=== PATIENT | female | born 1985 | race African-American/Black ===

== ENCOUNTER 2017-01-31 17:45 | Emergency (ER) | payer MEDICAID ==
[~2017-01-31] VITALS: Ht 170.2 cm; Wt 90.0 kg
[2017-01-31] MEDS ORDERED: ACETAMINOPHEN 325MG TABLET ONE (17:58)
[2017-01-31] MEDS ORDERED: ONDANSETRON HCL 4MG/2ML VIAL IV STA (18:31)
[2017-01-31] MEDS ORDERED: SODIUM CHLORIDE 0.9% 1,000 ML IV ONE ×2 (18:45→20:30)
[2017-01-31] MEDS ORDERED: KETOROLAC 30MG/ML VIAL IV ONE (18:45)
[2017-01-31] MEDS ORDERED: ACETAMINOPHEN 500MG TABLET PO ONE (18:45)
[2017-01-31 18:51] LABS: CLARITY URINE CLOUDY (CLEAR); COLOR URINE DARK YELLOW (YELLOW); GLUCOSE URINE NEGATIVE (NEGATIVE); KETONES URINE 1+ (NEGATIVE); LEUKOCYTE ESTERASE URINE 3+ (NEGATIVE); NITRITE URINE POSITIVE (NEGATIVE); OCCULT BLOOD URINE 3+ (NEGATIVE); PROTEIN URINE 2+ (NEGATIVE); SPECIFIC GRAVITY URINE 1.018 (1.005-1.030)
[2017-01-31] MEDS ORDERED: ACETAMINOPHEN 325MG TABLET PO ONE (19:00)
[2017-01-31] MEDS ORDERED: CEFTRIAXONE 2 G PREMIX 50 ML IV ONE (19:00)
[2017-01-31 19:41] LABS: BACTERIA URINE 3+; SQUAMOUS EPITHELIAL CELL URINE 2+ /lpf (RARE/1+); WBC URINE TNTC /hpf (0-2)
[2017-01-31 19:53] LABS: CHLORIDE 104 mEq/L (98-107); HEMATOCRIT. 32.1 % (36.0-48.0); INDEX HEMOLYSI 1 (1-3); INDEX ICTERIC 1 (1-4); INDEX LIPEMIC 1 (1-3); MEAN CORPUSCULAR HGB CONC 31.2 g/dL (31.0-37.0); MEAN CORPUSCULAR VOLUME 67.5 fL (81.0-99.0); PLATELET 101 x1000/uL (130-400); RED BLOOD CELL COUNT 4.76 mill/uL (4.2-5.4); RED CELL DISTRIBUTION WIDTH 17.1 % (11.6-14.6); WHITE BLOOD COUNT 8.7 x1000/uL (4.5-11.0)
[2017-01-31 19:56] LABS: CALCIUM 7.7 mg/dL (8.5-10.1); INR 1.2; PROTHROMBIN TIME 12.8 sec
[2017-01-31 19:58] LABS: ALBUMIN 2.6 g/dL (3.4-5.0); ANION GAP 13; CARBON DIOXIDE 21 mEq/L (21-32); DIFFERENTIAL COMMENT 1; LIPASE 64 IU/L (73-393); UREA NITROGEN BLOOD 9 mg/dL (7-21)
[2017-01-31 20:01] LABS: ALANINE AMINOTRANSFERASE 24 IU/L (13-61); eGFR > 60 mL/min (>60)
[2017-01-31 20:23] LABS: MAGNESIUM 1.8 mg/dL (1.8-2.4)
[2017-01-31] MEDS ORDERED: POTASSIUM CHLORIDE 20MEQ TABLET SR PO ONE (20:30)
[2017-01-31] MEDS ORDERED: KCL 20MEQ/100ML PREMIX 100 ML IV ONE (20:30)
[2017-01-31 20:37] LABS: ATYPICAL LYMPHOCYTES 2
[2017-01-31 20:39] LABS: HYPOCHROMASIA 2+; PLATELET ESTIMATE DECREASED
[2017-01-31] MEDS ORDERED: POTASSIUM CHLORIDE 20 MEQ/PACKET PO SCH (21:30)
[2017-01-31] MEDS ORDERED: ONDANSETRON HCL 4MG/2ML VIAL IV ONE (22:30)
[2017-02-01 00:36] LABS: CHLORIDE 105 mEq/L (98-107); INDEX HEMOLYSI 1 (1-3); INDEX ICTERIC 1 (1-4); INDEX LIPEMIC 1 (1-3)
[2017-02-01 00:42] LABS: ANION GAP 13; CALCIUM 7.6 mg/dL (8.5-10.1); CARBON DIOXIDE 24 mEq/L (21-32); UREA NITROGEN BLOOD 9 mg/dL (7-21); eGFR > 60 mL/min (>60)
[2017-02-01 02:44] VITALS: BP 115/73
== END 2017-02-01 02:47 | disposition home or self-care (01) ==
LOC: ER 17:46
DX: N12 Tubulo-interstitial nephritis, not specified as acute or chronic (principal); R05 Cough
CPT/HCPCS: 36415; 80048; 80053; 81001; 81025; 83690; 83735; 85025; 85610; 93005; 96361; 96365; 96366; 96375; 99285; J0696; J1885; J2405; J3480; J7030; Z7610

== ENCOUNTER 2018-12-04 19:49 | Observation (INO) | payer MEDICAID ==
[~2018-12-04] VITALS: Ht 170.2 cm; Wt 104.8 kg
[2018-12-04 21:03] LABS: CLARITY URINE TURBID (CLEAR); COLOR URINE YELLOW (YELLOW); KETONES URINE NEGATIVE (NEGATIVE); LEUKOCYTE ESTERASE URINE NEGATIVE (NEGATIVE); NITRITE URINE NEGATIVE (NEGATIVE); OCCULT BLOOD URINE TRACE (NEGATIVE); PH URINE 6.5 (4.5-8.0); PROTEIN URINE NEGATIVE (NEGATIVE); SPECIFIC GRAVITY URINE 1.015 (1.005-1.030)
[2018-12-04] MEDS ORDERED: LACTATED RINGERS 1,000 ML IV SCH (21:45)
[2018-12-04] MEDS ORDERED: CEFAZOLIN 2,000 MG in DEXT 5% WATER 100 ML IV SCH (22:45)
[2018-12-04] MEDS ORDERED: PNV1TABL50 MT (22:56)
== END 2018-12-05 00:22 | disposition home or self-care (01) ==
LOC: 8 EST A/PP 19:49 → ORIP 20:18 → 8 EST A/PP 20:20
PROVIDERS: ADMIT Obstetrics & Gynecology; ATTEND Obstetrics & Gynecology
DX: O26.893 Other specified pregnancy related conditions, third trimester (principal); R10.30 Lower abdominal pain, unspecified; M54.9 Dorsalgia, unspecified; R35.0 Frequency of micturition; Z3A.34 34 weeks gestation of pregnancy
CPT/HCPCS: 81003; 82731; 96365; G0378; J0690; J7060